=== PATIENT | male | born 1965 | race Caucasian/White ===

== ENCOUNTER 2017-10-25 07:38 | Emergency (ER) | payer MEDICARE, OTHER ==
[2017-10-25 07:51] VITALS: RESP 16
--- NOTE | 2017-10-25 08:20 | ED ---
Anxiety HPI - General Chief Complaint: Anxiety Stated Complaint: Anxiety Time Seen by Provider: 10/25/17 08:05 Source: patient, EMS, RN notes reviewed Mode of arrival: EMS Limitations: no limitations - History of Present Illness Initial Comments: This is a 52 year old male who presents with a chief complaint of anxiety. The patient states that he has been feeling "jittery", nauseous and sweating due to stress. The patient is currently being evicted and states he is also taking care of his girlfriend who recently had a stroke. He states that all the stress is causing him to have anxiety. Initially, he thought that his symptoms were due to his blood sugar being low. However, once he found his glucometer, his levels were adequate. He states that his neighbor is the one who felt the patient's anxiety was out of control and that he needed to come to the ED. patient states that he's had episodes like this over the last few days and states that his result with glucose tabs. Patient states that he has completely resolved now just cannot work as fast as he thought it would. Patient denies headache, dizziness, vomiting diarrhea or constipation no focal weakness. Patient does state that he has been off his Celexa for one month and some multiple for 1 week. Patient states that his physician is in [place] states that his truck make it there. Patient is not suicidal or homicidal. He does admit that he is very stressed, depressed because of his living situation He denies any current treatment for his anxiety. He denies chest pain or shortness of breath. - Related Data Home Medications: Home Medications Medication Instructions Recorded Confirmed Gabapentin [Neurontin] 900 mg PO TID 02/18/15 10/25/17 Acetaminophen with Codeine 1 tab PO DAILY PRN 08/10/15 10/25/17 [Tylenol w/codeine #4] Citalopram Hydrobromide [CeleXA] 20 mg PO BID 08/10/15 10/25/17 Acetaminophen Tab [Tylenol Tab] 1,000 mg PO TID 10/25/17 10/25/17 Atorvastatin Calcium [Lipitor] 80 mg PO DAILY 10/25/17 10/25/17 DULoxetine HCL [Cymbalta] 60 mg PO HS 10/25/17 10/25/17 Dextrose Chew [Glucose Chew Tab] 16 gm PO ONCE PRN 10/25/17 10/25/17 Ferrous Sulfate [Feosol] 325 mg PO BID 10/25/17 10/25/17 Fluticasone Nasal [place] [Flonase 1 spray EA NOSTRIL HS PRN 10/25/17 10/25/17 Nasal [place]] Lisinopril [Zestril] 2.5 mg PO DAILY 10/25/17 10/25/17 Ranitidine HCl [Zantac] 150 mg PO BID 10/25/17 10/25/17 metFORMIN HCL ER [Glucophage Xr] 500 mg PO BID-W/MEALS 10/25/17 10/25/17 Allergies/Adverse Reactions: Allergies Allergy/AdvReac Type Severity Reaction Status Date / Time codeine AdvReac Nausea & Verified 10/25/17 08:08 Vomiting Review of Systems ROS Statement: Those systems with pertinent positive or pertinent negative responses have been documented in the HPI. ROS Other: All systems not noted in ROS Statement are negative. Past Medical History Past Medical History: Cancer, Fibromyalgia, GERD/Reflux, Hyperlipidemia, Hypertension, Osteoarthritis (OA) Additional Past Medical History / Comment(s): bladder cancer History of Any Multi-Drug Resistant Organisms: None Reported Additional Past Surgical History / Comment(s): cystocopy( Multiple) Past Psychological History: Anxiety, Depression Smoking Status: Current every day smoker Past Alcohol Use History: Occasional, Rare Past Drug Use History: None Reported General Exam Limitations: no limitations General appearance: alert, in no apparent distress Head exam: Present: atraumatic, normocephalic, normal inspection Eye exam: Present: normal appearance, PERRL, EOMI. Absent: scleral icterus, conjunctival injection, periorbital swelling ENT exam: Present: normal exam, mucous membranes moist Respiratory exam: Present: normal lung sounds bilaterally. Absent: respiratory distress, wheezes, rales, rhonchi, stridor Cardiovascular Exam: Present: regular rate, normal rhythm, normal heart sounds. Absent: systolic murmur, diastolic murmur, rubs, gallop, clicks Neurological exam: Present: alert, oriented X3, CN II-XII intact, reflexes normal. Absent: motor sensory deficit Psychiatric exam: Present: anxious Skin exam: Present: warm, dry, intact, normal color. Absent: rash Course Vital Signs 10/25/17 07:46 Temperature 97.8 F Pulse Rate 79 Respiratory 16 Rate Blood Pressure 139/86 O2 Sat by Pulse 96 Oximetry Medical Decision Making - Medical Decision Making 52-year-old male presented for what appeared to be hyperglycemic event. This was resolved with glucose tabs. Patient does have some ongoing stress reaction , anxiety depression. Patient has been off his Celexa for one month. I did offer him to be evaluated by our psychiatric nurses though he declined. Patient is not suicidal or homicidal. Patient will be given outpatient resources advise any needs to restart his Celexa and Cymbalta. Patient agrees this plan patient will return for any worsening symptoms. Disposition Clinical Impression: Anxiety and depression, Stress reaction, Hypoglycemia Disposition: HOME SELF-CARE Condition: Stable Instructions: Generalized Anxiety Disorder (ED) Additional Instructions: Please return to the Emergency Department if symptoms worsen or any other concerns. Referrals: Nonstaff,Physician [Primary Care Provider] - 1-2 days Time of Disposition: 08:49
[2017-10-25 09:05] VITALS: BP 135/75; PULSE 80; TEMP 98
== END 2017-10-25 09:04 | disposition home or self-care (01) ==
LOC: EC 07:38
DX: F43.9 Reaction to severe stress, unspecified (principal); F41.8 Other specified anxiety disorders; E11.649 Type 2 diabetes mellitus with hypoglycemia without coma; E78.5 Hyperlipidemia, unspecified; I10 Essential (primary) hypertension; K21.9 Gastro-esophageal reflux disease without esophagitis; M79.7 Fibromyalgia; F17.200 Nicotine dependence, unspecified, uncomplicated; Z79.84 Long term (current) use of oral hypoglycemic drugs; Z79.899 Other long term (current) drug therapy; Z88.5 Allergy status to narcotic agent
CPT/HCPCS: 99284

== ENCOUNTER → 2019-04-24 | Day surgery (SDC) | payer MEDICARE, OTHER ==
[2019-04-23 11:07] VITALS: BMI 20.1
[~2019-04-24] MED LIST: LACTATED RINGERS 1,000 ML IV SCH; LIDOCAINE 1% 20 ML VIAL (10MG/ML) FOR IV START INTRADERMA ONE; PROPOFOL 10 MG/ML 20 ML VIAL IV ONE
[2019-04-24 09:18] VITALS: TEMP 98.1
[2019-04-24 09:21] LABS: Glucose,Whole Blood 158 mg/dL (75-99)
--- NOTE | 2019-04-24 10:44 | P.PCN ---
Date of Procedure: 04/24/19 Procedure(s) Performed: BRIEF HISTORY: Patient is a 53-year-old pleasant male, scheduled for an elective colonoscopy as a part of evaluation of intermittent rectal bleeding and family history of colon cancer. His father was diagnosed with colon cancer at age 60. PROCEDURE PERFORMED: Colonoscopy with snare polypectomy. PREOPERATIVE DIAGNOSIS: Rectal bleeding and family history of colon cancer. IV sedation per Anesthesia. PROCEDURE: After informed consent was obtained, the patient, was brought into the endoscopy unit. IV sedation was administered by Anesthesia under continuous monitoring. Digital rectal examination was normal. Initially the Olympus CF-160 flexible video colonoscope was then inserted in the rectum, gradually advanced into the cecum without any difficulty. Careful examination was performed as the scope was gradually being withdrawn. Ileocecal valve and the appendiceal orifice were visualized and appeared normal. Prep was excellent. Mucosa of the cecum, ascending colon, transverse colon appeared normal. In the descending colon there was a 1 cm polyp removed by snare polypectomy. Rest of the, descending colon, sigmoid colon, and rectum appeared normal. Retroflexion was performed in the rectum and grade 2 internal hemorrhoids were seen. The patient tolerated the procedure well. IMPRESSION: 1 cm descending colon polyp status post polypectomy Grade 2 internal hemorrhoids RECOMMENDATIONS: Findings of this examination were discussed with the patient well as his family. He was advised to follow with the biopsy results. If the biopsy shows an adenoma, he can have a repeat colonoscopy in 5 years.
[2019-04-24 11:01] VITALS: BP 100/64; PULSE 70; RESP 16
== END ==
LOC: ORWHC2ENDO 08:40
PROVIDERS: ATTEND Internal Medicine Gastroenterology
DX: K62.5 Hemorrhage of anus and rectum (principal); D12.4 Benign neoplasm of descending colon; K64.1 Second degree hemorrhoids; Z80.0 Family history of malignant neoplasm of digestive organs; E11.9 Type 2 diabetes mellitus without complications; K21.9 Gastro-esophageal reflux disease without esophagitis; F32.9 Major depressive disorder, single episode, unspecified; F17.210 Nicotine dependence, cigarettes, uncomplicated; Z79.84 Long term (current) use of oral hypoglycemic drugs; Z79.899 Other long term (current) drug therapy; Z88.5 Allergy status to narcotic agent; Z88.8 Allergy status to other drugs, medicaments and biological substances
CPT/HCPCS: 45385; 88305; J2704